=== PATIENT | male | born 1980 | race Caucasian/White ===

== ENCOUNTER 2018-10-20 08:23 | Emergency (ER) | payer OTHER ==
[~2018-10-20] VITALS: Ht 157.5 cm; Wt 63.5 kg
[2018-10-20 08:30] VITALS: BP 150/99
--- NOTE | 2018-10-20 08:55 | NUR ---
Patient discharged to home in stable condition. Written and verbal after care instructions given. Patient verbalizes understanding of instruction.
== END 2018-10-20 08:55 | disposition home or self-care (01) ==
LOC: ER 08:29
DX: T39.315A Adverse effect of propionic acid derivatives, initial encounter (principal); Y92.89 Other specified places as the place of occurrence of the external cause
CPT/HCPCS: 99282; A4606

== ENCOUNTER 2022-02-21 14:32 | Emergency (ER) | payer SELFPAY ==
--- NOTE | 2022-02-21 16:25 | NUR ---
CALLED IN TRIAGE, NO ANSWER
--- NOTE | 2022-02-21 16:30 | NUR ---
CALLED IN TRIAGE, NO ANSWER
== END 2022-02-21 17:03 | disposition left against medical advice (07) ==
LOC: ER 14:33
DX: Z53.21 Procedure and treatment not carried out due to patient leaving prior to being seen by health care provider (principal)